=== PATIENT | male | born 1970 | race Caucasian/White ===

== ENCOUNTER 2024-01-05 20:35 | Emergency (ER) | payer BC ==
[2024-01-05] MEDS: Acetaminophen 500 MG Tab PO ONE (21:42)
[2024-01-05] MEDS: Ondansetron 4 MG/2 ML SDV IVPUSH ONE (21:44)
== END 2024-01-05 23:32 ==
LOC: MW.ED 20:35
DX: U07.1 COVID-19 (principal); I10 Essential (primary) hypertension; E11.9 Type 2 diabetes mellitus without complications; Z88.5 Allergy status to narcotic agent; Z88.8 Allergy status to other drugs, medicaments and biological substances
CPT/HCPCS: 71046; 87428; 93005; 96374; 99285; A9270; J2405